=== PATIENT | male | born 1960 | race Caucasian/White ===

== ENCOUNTER 2021-06-28 16:36 | Emergency (ER) | payer OTHER ==
[~2021-06-28] VITALS: Ht 182.9 cm; Wt 134.7 kg
[2021-06-28 17:37] LABS: ABSOLUTE NEUTROPHILS 4.3 thou/uL (1.4-8.2); BASOPHILS 1.1 % (0.0-2.0); EOSINOPHILS 1.9 % (0.0-3.0); HEMATOCRIT 42.7 % (42.0-52.0); HEMOGLOBIN 14.3 gm/dL (14.0-18.0); LYMPHOCYTES 11.9 % (24.0-44.0); MCH 29.5 pg (26.0-34.0); MCHC 33.5 g/dL (28.0-37.0); MONOCYTES 12.1 % (1.0-8.0); PLATELET COUNT 313 thou/uL (150-400); RBC 4.85 mil/uL (4.50-6.00); RDW 13.8 % (10.5-14.5); WBC 5.9 thou/uL (4.0-11.0)
[2021-06-28 17:40] LABS: CALCIUM 9.1 mg/dL (8.5-10.1)
[2021-06-28 17:50] LABS: ALBUMIN 2.6 g/dL (3.4-5.0); TOTAL BILIRUBIN 0.6 mg/dL (0.2-1.0); TOTAL PROTEIN 8.6 g/dL (6.4-8.2)
[2021-06-28] MEDS ORDERED: ZPAK PO (18:46)
[2021-06-28 18:57] VITALS: BP 134/72
--- NOTE | 2021-06-29 11:32 | EKG ---
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
== END 2021-06-28 19:03 | disposition home or self-care (01) ==
LOC: ER 16:36
PROVIDERS: Emergency Medicine
DX: U07.1 COVID-19 (principal); Z79.899 Other long term (current) drug therapy; Z91.02 Food additives allergy status